=== PATIENT | female | born 1990 | race Caucasian/White ===

== ENCOUNTER 2021-06-18 11:22 | Inpatient (IN) | payer BC ==
[2021-06-18] MEDS ORDERED: MENTHOL/PHENOL 1 EACH UD MM PRN (12:28)
[2021-06-18] MEDS ORDERED: ONDANSETRON *ODT* 4 MG TABLET SL PRN (12:28)
[2021-06-18] MEDS ORDERED: cloNIDine HCL 0.1 MG TABLET PO PRN (12:28)
[2021-06-18] MEDS ORDERED: MAGNESIUM HYDROX 2400MG/30ML ORAL SUSPENSION 30 ML CUP PO PRN (12:28)
[2021-06-18] MEDS ORDERED: MAG HYDROX/AL HYDROX/SIMETH 30 ML UNIT-DOSE CUP PO PRN (12:28)
[2021-06-18] MEDS ORDERED: NICOTINE 10 MG CARTRIDGE (INHALER) IH PRN (12:28)
[2021-06-18] MEDS ORDERED: ACETAMINOPHEN 325 MG TABLET (FP) PO PRN ×2 (12:28)
[2021-06-18] MEDS ORDERED: BISMUTH SUBSALICYLATE 524 MG/30 ML PO PRN (12:28)
[2021-06-18] MEDS ORDERED: MAGNESIUM CITRATE 300 ML BOTTLE PO PRN (12:28)
[2021-06-18 12:42] VITALS: BMI 20.5
[2021-06-18] MEDS ORDERED: BUPRENORPHINE HCL 150 MCG, BUPRENORPHINE HCL 75 MCG BC ONE (12:45)
[2021-06-18] MEDS ORDERED: BUPRENORPHINE HCL 150 MCG FILM BC ONE (13:14)
[2021-06-18] MEDS ORDERED: BUPRENORPHINE HCL 75 MCG FILM BC ONE (13:15)
[2021-06-18] MEDS: hydrOXYzine PAMOATE 25 MG CAPSULE (FP) PO SCH ×2 (14:17→19:03)
[2021-06-18] MEDS: PRENATAL VITAMINS W/ FOLIC ACID TABLET (FP) PO SCH (14:17)
[2021-06-18] MEDS: NICOTINE 14 MG/24 HOURS TOPICAL PATCH TD SCH (14:17)
[2021-06-18 16:39] LABS: CALCIUM 8.8 mg/dL (8.5-10.1); HEMATOCRIT 37.6 % (32.4-45.2); HEMOGLOBIN 12.6 GM/dL (10.7-15.3); MCH 29.7 pg (25.7-33.7); MCHC 33.5 g/dl (32.0-36.0); MEAN CELL VOLUME 88.9 fl (80-96); MEAN PLT VOLUME 9.1 fl (7.5-11.1); PLATELET COUNT 155 10^3/uL (134-434); RBC 4.23 M/mm3 (3.60-5.2)
[2021-06-18 16:40] LABS: ALBUMIN 3.7 g/dl (3.4-5.0); BLOOD UREA NITROGEN 13.8 mg/dL (7-18)
[2021-06-18 16:43] LABS: CREATININE 0.8 mg/dL (0.55-1.3)
[2021-06-18 16:44] LABS: TOT PROT 6.4 g/dl (6.4-8.2)
[2021-06-18 16:45] LABS: BILIRUBIN,TOTAL 0.3 mg/dL (0.2-1)
[2021-06-18 17:38] LABS: HIV INTERPRETATION NEGATIVE (NEGATIVE)
[2021-06-19] MEDS: MELATONIN 5 MG TABLETS PO SCH ×2 (00:10→22:23)
[2021-06-19] MEDS: THIAMINE HCL 100 MG TABLET (FP) PO SCH ×2 (00:11→22:31)
[2021-06-19] MEDS: hydrOXYzine PAMOATE 25 MG CAPSULE (FP) PO SCH ×6 (00:11→22:30)
[2021-06-19] MEDS ORDERED: BUPRENORPHINE HCL 75 MCG FILM BC ONE ×2 (04:06→17:05)
[2021-06-19] MEDS ORDERED: BUPRENORPHINE HCL 150 MCG FILM BC ONE ×2 (04:07→17:05)
[2021-06-19] MEDS: BUPRENORPHINE HCL 150 MCG, BUPRENORPHINE HCL 75 MCG BC SCH ×2 (05:20→17:52)
[2021-06-19] MEDS: METHOCARBAMOL 500 MG TABLET PO PRN ×2 (10:52→19:25)
[2021-06-19] MEDS: PRENATAL VITAMINS W/ FOLIC ACID TABLET (FP) PO SCH (10:52)
[2021-06-19] MEDS: NICOTINE 14 MG/24 HOURS TOPICAL PATCH TD SCH (10:52)
[2021-06-19] MEDS: IBUPROFEN 400 MG TABLET (FP) PO PRN ×2 (10:52→18:35)
[2021-06-19] MEDS: LIDOCAINE 5% TOPICAL PATCH TP SCH (10:53)
[2021-06-19] MEDS ORDERED: NALOXONE (NARCAN) HCL 4 MG/0.1 ML SPRAY NS ONE (20:50)
[2021-06-19] MEDS ORDERED: LIDOCAINE PATCH REMOVAL MC SCH ×2 (22:00)
[2021-06-20] MEDS: hydrOXYzine PAMOATE 25 MG CAPSULE (FP) PO SCH ×3 (05:39→15:09)
[2021-06-20] MEDS ORDERED: BUPRENORPHINE HCL 450 MCG FILM BC SCH (06:00)
[2021-06-20 07:03] VITALS: BP 133/87; PULSE 55; TEMP 98.6
[2021-06-20] MEDS: LIDOCAINE 5% TOPICAL PATCH TP SCH (15:04)
[2021-06-20] MEDS: NICOTINE 14 MG/24 HOURS TOPICAL PATCH TD SCH (15:06)
[2021-06-20] MEDS: PRENATAL VITAMINS W/ FOLIC ACID TABLET (FP) PO SCH (15:07)
[2021-06-21] MEDS ORDERED: BUPRENORPHINE/NALOXONE 4 MG/1 MG FILM PACKET SL SCH (06:00)
[2021-06-22] MEDS ORDERED: BUPRENORPHINE/NALOXONE 8 MG/2 MG FILM PACKET SL ONE (06:00)
== END 2021-06-21 00:30 | disposition short-term general hospital (02) | DRG 773 ==
LOC: YASAS 11:22 → Y6N 13:16
PROVIDERS: ADMIT Allergy & Immunology; ATTEND Allergy & Immunology
PROC: HZ2ZZZZ Detoxification Services for Substance Abuse Treatment (ICD-10-PCS; principal; 2021-06-18)
DX: F11.23 Opioid dependence with withdrawal (principal); F13.20 Sedative, hypnotic or anxiolytic dependence, uncomplicated; F12.20 Cannabis dependence, uncomplicated; F17.210 Nicotine dependence, cigarettes, uncomplicated; F19.280 Other psychoactive substance dependence with psychoactive substance-induced anxiety disorder; F19.282 Other psychoactive substance dependence with psychoactive substance-induced sleep disorder; R56.9 Unspecified convulsions; Z62.810 Personal history of physical and sexual abuse in childhood; Z91.410 Personal history of adult physical and sexual abuse; Z56.0 Unemployment, unspecified; Z88.0 Allergy status to penicillin; Z91.018 Allergy to other foods
CPT/HCPCS: 36415; 80053; 81025; 82962; 85027; 86780; 87389; 93005; 93010; C9803; J0735; U0003; U0005

== ENCOUNTER 2021-06-19 21:08 | Emergency (ER) | payer BC ==
[2021-06-19 21:18] VITALS: BP 119/84; PULSE 65; TEMP 98.2; BMI 20.1
== END 2021-06-20 04:58 | disposition home or self-care (01) ==
LOC: JER 21:08
DX: G40.89 Other seizures (principal); F11.20 Opioid dependence, uncomplicated
CPT/HCPCS: 82962; 99283-25

== ENCOUNTER 2021-06-20 07:34 | Inpatient (IN) | payer BC ==
[2021-06-20] MEDS ORDERED: levETIRAcetam 500 MG/5 ML INJECTION VIAL IVPB ONE ×2 (07:59→08:00)
[2021-06-20] MEDS ORDERED: FAMOTIDINE 20 MG/50 ML IVPB 20 MG/50 ML MG IVPB ONE ×2 (08:18→08:19)
[2021-06-20] MEDS ORDERED: ONDANSETRON 4 MG/2 ML VIAL IVPUSH ONE ×2 (08:44→09:59)
[2021-06-20 08:58] LABS: BASO % 0.4 % (0-2.0); HEMATOCRIT 44.4 % (32.4-45.2); HEMOGLOBIN 14.3 GM/dL (10.7-15.3); LYMPH % 8.4 % (8-40); MCH 28.5 pg (25.7-33.7); MCHC 32.2 g/dl (32.0-36.0); MEAN CELL VOLUME 88.7 fl (80-96); MEAN PLT VOLUME 8.8 fl (7.5-11.1); MONO % 2.6 % (3.8-10.2); NEUT % 88.6 % (42.8-82.8); PLATELET COUNT 174 10^3/uL (134-434); RBC 5.01 M/mm3 (3.60-5.2); WHITE BLOOD COUNT 11.2 K/mm3 (4.0-10.0)
[2021-06-20] MEDS ORDERED: LACTATED RINGERS SOLUTION 1,000 ML/1,000 ML INFUS.BAG IV STA (09:04)
[2021-06-20] MEDS ORDERED: SUCRALFATE 1 GM/10 ML UNIT DOSE CUPS PO ONE (09:04)
[2021-06-20 09:07] LABS: INR 1.15 (0.83-1.09); PROTHROMBIN TIME (PATIENT) 13.2 SEC (9.7-13.0)
[2021-06-20] MEDS ORDERED: SUCRALFATE 1 GM TABLET (FP) ONE (09:07)
[2021-06-20] MEDS ORDERED: ONDANSETRON 4 MG/2 ML VIAL ONE ×2 (09:08→11:02)
[2021-06-20 09:16] LABS: CALCIUM 9.1 mg/dL (8.5-10.1)
[2021-06-20 09:17] LABS: ALBUMIN 4.1 g/dl (3.4-5.0); MAGNESIUM 2.4 mg/dL (1.8-2.4)
[2021-06-20 09:20] LABS: CREATININE 0.6 mg/dL (0.55-1.3)
[2021-06-20 09:21] LABS: BILIRUBIN,TOTAL 0.4 mg/dL (0.2-1)
[2021-06-20 09:22] LABS: TOT PROT 7.3 g/dl (6.4-8.2)
[2021-06-20 09:28] LABS: BLOOD UREA NITROGEN 13.4 mg/dL (7-18)
[2021-06-20] MEDS ORDERED: LORazepam 0.5 MG TABLET PO ONE (09:59)
[2021-06-20] MEDS ORDERED: METOCLOPRAMIDE HCL INJECTION 10 MG/2 ML VIAL IVPUSH ONE ×2 (10:51→23:13)
[2021-06-20] MEDS ORDERED: ACETAMINOPHEN 1000 MG/100 ML BAG IVPB ONE ×2 (10:51→18:50)
[2021-06-20] MEDS ORDERED: LORazepam 0.5 MG TABLET ONE (11:01)
[2021-06-20] MEDS ORDERED: METOCLOPRAMIDE HCL INJECTION 10 MG/2 ML VIAL ONE (11:01)
[2021-06-20] MEDS ORDERED: ACETAMINOPHEN INJECTION 100 ML IVPB ONE (11:01)
[2021-06-20] MEDS ORDERED: LOPERAMIDE HCL 2 MG CAPSULE PO PRN (11:56)
[2021-06-20 12:19] LABS: COCAINE, UR NEGATIVE (NEGATIVE); OPIATES, URI NEGATIVE (NEGATIVE); URINE BARBITURATES NEGATIVE (NEGATIVE)
[2021-06-20 12:20] LABS: PHENCYCLIDINE,URINE NEGATIVE (NEGATIVE)
[2021-06-20 12:25] LABS: METHADONE, UR NEGATIVE (NEGATIVE); URINE AMPHETAMINES NEGATIVE (NEGATIVE); URINE BENZODIAZEPINES POSITIVE (NEGATIVE)
[2021-06-20] MEDS ORDERED: LORazepam 2 MG/ML SDV VIAL IVPUSH ONE (16:28)
[2021-06-20 16:53] VITALS: BMI 18.6
[2021-06-20] MEDS ORDERED: MELATONIN 5 MG TABLETS PO ONE ×2 (18:25→20:15)
[2021-06-20] MEDS ORDERED: NICOTINE 7 MG/24 HOURS TOPICAL PATCH TD ONE (19:29)
[2021-06-20] MEDS: hydrOXYzine PAMOATE 25 MG CAPSULE (FP) PO PRN (20:04)
[2021-06-20] MEDS ORDERED: LIDOCAINE PATCH REMOVAL MC SCH (22:00)
[2021-06-20] MEDS: DIVALPROEX SODIUM 500 MG TABLET E.C. PO SCH (22:28)
[2021-06-20] MEDS: FAMOTIDINE 20 MG TABLET PO SCH (22:28)
[2021-06-20] MEDS: DICYCLOMINE HCL 10 MG CAPSULE PO PRN (22:45)
[2021-06-20] MEDS ORDERED: LIDOCAINE 5% TOPICAL PATCH TP ONE (22:59)
[2021-06-21] MEDS ORDERED: BUPRENORPHINE/NALOXONE 2 MG/0.5 MG FILM PACKET SL SCH ×2 (00:05→06:00)
[2021-06-21 00:21] LABS: EPI CELLS >36 /uL (0-25.1); HYALINE CASTS 7 /uL (0-3.1); URINE APPEARANCE CLOUDY; URINE BACTERIA 2612 /uL (0-1359); URINE BILIRUBIN NEGATIVE (NEGATIVE); URINE COLOR YELLOW; URINE GLUCOSE (UA) NEGATIVE (NEGATIVE); URINE KETONE TRACE (NEGATIVE); URINE LEUK ESTERASE NEGATIVE (NEGATIVE); URINE NITRITE NEGATIVE (NEGATIVE); URINE PROTEIN 1+ (NEGATIVE); URINE RBC 32 /uL (0-23.9); URINE UROBILINOGEN 0.2 mg/dL (0.2-1.0)
[2021-06-21] MEDS: hydrOXYzine PAMOATE 25 MG CAPSULE (FP) PO PRN ×2 (01:32→10:17)
[2021-06-21] MEDS ORDERED: ACETAMINOPHEN 325 MG TABLET (FP) PO ONE (01:49)
[2021-06-21] MEDS: DICYCLOMINE HCL 10 MG CAPSULE PO PRN (05:53)
[2021-06-21 07:56] LABS: BASO % 0.2 % (0-2.0); HEMATOCRIT 41.3 % (32.4-45.2); HEMOGLOBIN 13.8 GM/dL (10.7-15.3); LYMPH % 14.7 % (8-40); MCH 29.6 pg (25.7-33.7); MCHC 33.5 g/dl (32.0-36.0); MEAN CELL VOLUME 88.4 fl (80-96); MONO % 7.1 % (3.8-10.2); PLATELET COUNT 153 10^3/uL (134-434); RBC 4.67 M/mm3 (3.60-5.2); RDW 13.7 % (11.6-15.6); WHITE BLOOD COUNT 11.7 K/mm3 (4.0-10.0)
[2021-06-21 08:31] LABS: ALBUMIN 4.1 g/dl (3.4-5.0); CALCIUM 8.8 mg/dL (8.5-10.1); MAGNESIUM 2.3 mg/dL (1.8-2.4)
[2021-06-21 08:32] LABS: BLOOD UREA NITROGEN 17.2 mg/dL (7-18)
[2021-06-21 08:34] LABS: PHOSPHOROUS 3.3 mg/dL (2.5-4.9)
[2021-06-21 08:35] LABS: CREATININE 0.8 mg/dL (0.55-1.3)
[2021-06-21 08:36] LABS: BILIRUBIN,TOTAL 0.6 mg/dL (0.2-1); TOT PROT 7.1 g/dl (6.4-8.2)
[2021-06-21] MEDS ORDERED: NICOTINE 14 MG/24 HOURS TOPICAL PATCH TD SCH (10:00)
[2021-06-21] MEDS ORDERED: ENOXAPARIN NA (PORCINE) 40 MG/0.4 ML DISP.SYRIN SQ SCH (10:00)
[2021-06-21] MEDS: FAMOTIDINE 20 MG TABLET PO SCH (10:18)
[2021-06-21] MEDS: DIVALPROEX SODIUM 500 MG TABLET E.C. PO SCH (10:25)
[2021-06-21 12:42] VITALS: BP 134/88; PULSE 62; TEMP 98
[2021-06-22] MEDS ORDERED: BUPRENORPHINE/NALOXONE 8 MG/2 MG FILM PACKET SL ONE (06:00)
== END 2021-06-21 12:32 | disposition short-term general hospital (02) | DRG 101 ==
LOC: JER 07:34 → JERBED 11:54 → J7W 15:35
PROVIDERS: ADMIT Internal Medicine
DX: G40.909 Epilepsy, unspecified, not intractable, without status epilepticus (principal); F11.20 Opioid dependence, uncomplicated; F41.9 Anxiety disorder, unspecified; F13.10 Sedative, hypnotic or anxiolytic abuse, uncomplicated
CPT/HCPCS: 36415; 70450-TC; 71045-TC-FY; 74177-TC; 80053; 80307; 81003; 83690; 83735; 84100; 84146; 84703; 85025; 85610; 93005; 93010; 99285-25; J0131